=== PATIENT | male | born 1950 | race Caucasian/White ===

== ENCOUNTER 2019-10-20 12:42 | Emergency (ER) | payer OTHER ==
[2019-10-20 13:09] VITALS: BP 140/70; PULSE 79; TEMP 98.1; BMI 31.8
[2019-10-20] MEDS ORDERED: MECLIZINE HCL 25 MG TABLET (FP) PO ONE (13:28)
--- NOTE | 2019-10-20 13:29 | PDOC ---
History of Present Illness - General Chief Complaint: Lightheaded Stated Complaint: VERTIGO WHEN GETTING OUT OF BED Time Seen by Provider: 10/20/19 12:47 History Source: Patient Exam Limitations: No Limitations - History of Present Illness Initial Comments: 10/20/19 13:28 69y M hx of copd, polyarthralgia rhematica, hypothyroidism, hl, presents with several complaints. pt endorses feeling Occasionally lightheaded when he is getting out of bed, However typically during the day he feels fine and denies any lightheadedness, dizziness, vertigo. He denies any associated double vision, blurry vision, dysarthria, focal numbness, tingling, weakness, headache associated with this dizziness. The patient does note that his balance has been off for a while, rquiring him to use a cane, however he has not been evaluated specifically for this. He also denies any recent head injuries, palpitations, chest pain, nausea, vomiting, diaphoresis, blood per rectum. Patient does endorse occasional cough especially when he is laying down. He also notes some increased leg swelling that is worse during the day and usually improves after he gets out of bed. The cough is typically nonproductive, denies any hemoptysis. He denies any associated calf pain or leg pain. He denies any short ness of breath, dyspnea on exertion, chest pain with exertion, diaphoresis. Patient does note that he has gained weight over the last month, states that he stopped taking his prednisone yesterday. He denies any associated dyspnea on exertion. Patient's PMD is in [place], He traveled from [place] several months ago, had a negative covid test in july Is this a multiple visit Asthma Patient?: No Past History - Medical History Allergies/Adverse Reactions: Allergies Allergy/AdvReac Type Severity Reaction Status Date / Time No Known Allergies Allergy Verified 10/20/19 12:44 Home Medications: Ambulatory Orders Albuterol Sulfate Inhaler - [Ventolin Hfa Inhaler -] 1 - 2 inh PO QID PRN 10/20/19 Aspirin [Aspirin EC] 81 mg PO HS 10/20/19 Atorvastatin Ca [Lipitor] 10 mg PO HS 10/20/19 Fluticasone/Salmeterol [Advair 250-50 Diskus] 1 each IH DAILY 10/20/19 Folic Acid 1 mg PO DAILY 10/20/19 Levothyroxine [Synthroid -] 25 mcg PO DAILY 10/20/19 Meclizine HCl [Antivert -] 25 mg PO TID PRN #15 tablet 10/20/19 Methotrexate [Mexate -] 2.5 mg PO Q7D 10/20/19 Multivit-Min/FA/Lycopen/Lutein [Centrum Silver Men Tablet] 1 each PO DAILY 10/20/19 Olmesartan Medoxomil 5 mg PO DAILY 10/20/19 Prednisone 10 mg PO DAILY 10/20/19 Tiotropium Labadie [Spiriva] 1 inh PO BID 10/20/19 COPD: Yes HTN: Yes Hypercholesterolemia: Yes Thyroid Disease: Yes Other medical history: POLYMYALGIA - Surgical History Appendectomy: Yes (MICRO SECRETING BENIGN TUMOR) - Psycho-Social/Smoking History Smoking History: Never smoked - Substance Abuse Hx (Audit-C & DAST Scrn) How often the patient has a drink containing alcohol: Monthly or less Score: In Men: 4 or > Positive; In Women: 3 or > Positive: 1 Screen Result (Pos requires Nsg. Audit-10AR): Negative In the last yr the pt used illegal drug/Rx for NonMed reason: No Score: Yes response is considered Positive: 0 Screen Result (Positive result requires Nsg. DAST-10): Negative Review of Systems - Review of Systems Able to Perform ROS?: Yes Comments:: 10/20/19 13:55 Constitutional - no reported Fever, Chills, HEENT: no reported vision changes, sore throat Respiratory: no reported cough, sob, hemoptysis Cardiac: no reported chest pain, palpitations, light headedness, leg swelling Abd/GI: no reported abd pain, nausea, vomiting, blood per rectum, melena, diar stefani : no reported dysuria, frequency, discharge Musculskelatal - no reported back pain, joint swelling skin - no reported bruising, erythema, rash neurological: +vertigo no reported headache, numbness, focal weakness, tingling, ataxia, hematologic: no reported easy bruising, easy bleeding *Physical Exam - Vital Signs Last Vital Signs Temp Pulse Resp BP Pulse Ox 98.1 F 79 20 140/70 97 10/20/19 12:44 10/20/19 12:44 10/20/19 12:44 10/20/19 12:44 10/20/19 12:44 - Physical Exam 10/20/19 13:56 GENERAL: The patient is awake, alert, and fully oriented, Nontoxic - in no acute distress. HEAD: Normocephalic, atraumatic. EYES: extraocular movements intact, sclera anicteric, conjunctiva clear, No nystagmus ENT: Normal voice, Moist mucous membranes. NECK: Normal range of motion, supple LUNGS: Breath sounds equal, clear to auscultation bilaterally. No wheezes, no rhonchi, no rales. HEART: Regular rate and rhythm, normal S1 and S2 without murmur, rub or gallop. ABDOMEN: Soft, nontender, No guarding, no rebound. No CVA tenderness EXTREMITIES: Normal range of motion, no edema. NEUROLOGICAL: No facial assymetry, Normal speech, Normal [id number], normal gait, Motor strength in upper and lower extremities is 5 out of 5 and symmetric, sensation intact and symmetric on upper and lower extremities, PSYCH: Normal mood, normal affect. SKIN: Warm, Dry, normal turgor, Heart Score/ECG Review - ECG Impressions Comment:: 10/20/19 13:56 Twelve-lead EKG was performed and reviewed by me. There is normal sinus rhythm with a normal rate. Rate of [address] changes suggestive of acute ischemia ED Treatment Course - LABORATORY CBC & Chemistry Diagram: 10/20/19 13:45 10/20/19 13:45 - RADIOLOGY Radiology Studies Ordered: Category Date Time Status HEAD CT WITHOUT CONTRAST [CT] Stat CT Scan 10/20/19 13:21 Ordered CHEST PA & LAT [RAD] Stat Radiology 10/20/19 13:21 Ordered Medical Decision Making - Medical Decision Making 10/20/19 15:41 pt feeling improved, no cerebellar or focal neuro fundings. ambulating with normal gait labs, cxr, ct negative will have pt fu with outpt md for further management return precautions were discussed I discussed the physical exam findings, ancillary test results and final d iagnoses with the patient. I answered all of the patient's questions. The patient was satisfied with the care received and felt comfortable with the discharge plan and treatment plan. The patient will call their primary care physician within 24 hours to arrange follow-up and will return to the Emergency Department with any new, persistent or worsening symptoms. Discharge - Discharge Information Problems reviewed: Yes Clinical Impression/Diagnosis: Vertigo Condition: Improved Disposition: HOME - Admission No - Additional Discharge Information Prescriptions: Meclizine HCl [Antivert -] 25 mg PO TID PRN #15 tablet PRN Reason: Vertigo - Follow up/Referral Referrals: [facility] [place] [Provider Group] Aravind Partida MD [Staff Physician] - Dennis Murillo MD [Staff Physician] - - Patient Discharge Instructions Patient Printed Discharge Instructions: DI for Vertigo Additional Instructions: Return to the emergency department immediately with ANY new, persistent or worsening symptoms. You MUST call and follow up with your doctor in 3-4 days for further evaluation of your symptoms. Results were discussed with you. Please make sure your doctor reviews the results of your emergency evaluation. Your Emergency Department visit is not complete without a follow up with your doctor. Print Language: EAST [place] - Post Discharge Activity
[2019-10-20] MEDS ORDERED: MECLIZINE HCL 25 MG TABLET (FP) ONE (13:37)
[2019-10-20 14:38] LABS: EOS % 6.8 % (0-4.5); HEMATOCRIT 44.3 % (35.4-49); HEMOGLOBIN 14.8 GM/dl (11.7-16.9); LYMPH % 21.6 % (8-40); MCH 34.2 pg (25.7-33.7); MCHC 33.5 g/dl (32.0-35.9); MEAN PLT VOLUME 7.9 fl (7.5-11.1); MONO % 7.2 % (3.8-10.2); NEUT % 62.4 % (42.8-82.8); PLATELET COUNT 237 K/MM3 (134-434); RBC 4.34 M/mm3 (4.00-5.60); RDW 13.4 % (11.9-15.9); WHITE BLOOD COUNT 8.1 K/mm3 (4.0-10.8)
[2019-10-20 14:55] LABS: ALBUMIN 4.4 g/dl (3.4-5.0); CALCIUM 8.9 mg/dl (8.5-10); CREATININE 1.1 mg/dl (0.55-1.3); POTASSIUM 4.1 mmol/L (3.5-5.1); TOT PROT 7.3 g/dl (6.4-8.2)
[2019-10-20 15:08] LABS: N-TERMINAL BNP 44.2 pg/ml (5-125)
[2019-10-20 15:44] LABS: EPITHELIAL CELLS RARE /hpf
--- NOTE | 2019-10-20 18:28 | EKG ---
Test Reason : Blood Pressure : / mmHG Vent. Rate : 074 BPM Atrial Rate : 074 BPM P-R Int : 162 ms QRS Dur : 066 ms QT Int : 378 ms P-R-T Axes : 000 017 086 degrees QTc Int : 419 ms SINUS RHYTHM WITH SINUS ARRHYTHMIA WITH OCCASIONAL PREMATURE VENTRICULAR COMPLEXES NONSPECIFIC ST AND T WAVE ABNORMALITY ABNORMAL ECG NO PREVIOUS ECGS AVAILABLE Confirmed by CARLTON WILLIS MD ([id number]) on 10/20/2019 6:28:32 PM Referred By: GWEN RIVAS Confirmed By:CARLTON WILLIS MD
== END 2019-10-20 15:59 | disposition home or self-care (01) ==
LOC: FER 12:42
DX: H81.10 Benign paroxysmal vertigo, unspecified ear (principal)
CPT/HCPCS: 36415; 70450-TC; 71046-TC-FY; 80053; 81003; 81015; 82550; 82553; 83880; 84484; 85025; 93005; 99285-25; U0003